=== PATIENT | male | born 1960 | race Two or more races ===

== ENCOUNTER → 2024-11-11 | Outpatient (CLI) | payer MEDICARE, MEDICAID, SELFPAY ==
--- NOTE | 2024-11-11 15:18 | XR_ITS ---
Examination: Hand, left 3 views Technique: Hand AP, oblique, lateral 3 views Date and time of exam: November 11, 2024 1524 hours INDICATIONS: Injury to the left hand October 29, 2024 FINDINGS: Early healing fracture fourth metacarpal, 1.5 mm offset IMPRESSION: Early healing fracture fourth metacarpal with satisfactory alignment
--- NOTE | 2024-11-11 15:18 | XR_ITS ---
Examination: Wrist, left 3 views Technique: Wrist AP, oblique, lateral 3 views Date and time of exam: November 03, 2024 1546 hours INDICATIONS: Hand fracture October 29, 2024 FINDINGS: Early healing fracture fourth metacarpal with minimal offset Nondisplaced ulnar styloid tip fracture Carpal bones intact IMPRESSION: Early healing fracture fourth metacarpal with satisfactory alignment
== END | disposition home or self-care (01) ==
PROVIDERS: PCP Nurse Practitioner Family
DX: S62.395A Other fracture of fourth metacarpal bone, left hand, initial encounter for closed fracture (principal); X58.XXXA Exposure to other specified factors, initial encounter
CPT/HCPCS: 73110; 73130